=== PATIENT | male | born 1990 | race Caucasian/White ===

== ENCOUNTER 2019-01-01 14:47 | Emergency (ER) | payer SELFPAY ==
[2019-01-01] MEDS ORDERED: NORMAL SALINE 1000 ML 1,000 ML IV ONE (16:02)
--- NOTE | 2019-01-01 16:05 | ER Document Report ---
ED Medical Screen (RME) - General Chief Complaint: Abdominal Pain Stated Complaint: LOWER BACK PAIN Time Seen by Provider: 01/01/19 16:01 Primary Care Provider: JESSI ESPAÑA [Primary Care Provider] - Follow up as needed Notes: Patient is a otherwise healthy 28-year-old male presents to the emergency department for what he feels is blood in his urine. Patient states yesterday he noticed that his urine was a dark color. States initially thought he was just hydrated and drink more water. States then his urine was "normal." States today when he urinated he feels as though it was very dark, "almost like there was blood in it." Patient is also complaining of generalized suprapubic abdominal pain. Patient denies any kidney pain, back pain, trauma. GENERAL: Alert, interacts well. No acute distress. ABDOMEN: Soft, generalized suprapubic tenderness noted. Non-distended. Bowel sounds present in all 4 quadrants. EXTREMITIES: Moves all 4 extremities spontaneously. No edema, normal radial and dorsalis pedis pulses bilaterally. No cyanosis. BACK: no cervical, thoracic, lumbar midline tenderness. No saddle anesthesia, normal distal neurovascular exam. No CVA tenderness noted bilaterally This medical record was dictated with voice recognizing software. There may be grammatical, syntax errors that are unintended. I have greeted and performed a rapid initial assessment of this patient. A comprehensive ED assessment and evaluation of the patient, analysis of test results and completion of the medical decision making process will be conducted by additional ED providers. I have specifically instructed the patient or family members with the patient to immediately return to any nursing staff should anything change in the patient's condition or with their chief complaint. This medical record was dictated with voice recognizing software. There may be grammatical, syntax errors that are unintended. TRAVEL OUTSIDE OF THE [place] IN LAST 30 DAYS: No - Related Data Allergies/Adverse Reactions: No Known Allergies Allergy (Verified 01/01/19 14:47) Past Medical History - Social History Frequency of alcohol use: None Drug Abuse: None Renal/ Medical History: Denies: Hx Peritoneal Dialysis Past Surgical History: Reports: Hx Orthopedic Surgery Physical Exam - Vital signs Vitals: Temp Pulse Resp BP Pulse Ox 98.0 F 73 18 158/99 H 99 01/01/19 14:51 01/01/19 14:51 01/01/19 14:51 01/01/19 14:51 01/01/19 14:51 Course - Vital Signs Vital signs: Temp Pulse Resp BP Pulse Ox 98.0 F 73 18 158/99 H 99 01/01/19 14:51 01/01/19 14:51 01/01/19 14:51 01/01/19 14:51 01/01/19 14:51 Doctor's Discharge - Discharge Referrals: LOCALMD,NO [Primary Care Provider] - Follow up as needed
[2019-01-01 16:47] LABS: ABSOLUTE LYMPHOCYTES (AUTO) 1.3 10^3/uL (0.5-4.7); ABSOLUTE MONOCYTES (AUTO) 0.6 10^3/uL (0.1-1.4); ABSOLUTE NEUT (AUTO) 4.9 10^3/uL (1.7-8.2); BASOPHILS % (AUTO) 0.2 % (0-2); EOSINOPHILS % (AUTO) 0.4 % (0-6); HEMATOCRIT 47.7 % (37.9-51.0); HEMOGLOBIN 16.7 g/dL (13.5-17.0); LYMPHOCYTES % (AUTO) 18.9 % (13-45); MEAN CORPUSCULAR HEMOGLOBIN 29.8 pg (27.0-33.4); MEAN CORPUSCULAR VOLUME 85 fl (80-97); MONOCYTES % (AUTO) 8.3 % (3-13); PLATELET COUNT 179 10^3/uL (150-450); RED CELL DISTRIBUTION WIDTH 13.4 % (11.5-14.0); SEGMENTED NEUTROPHILS % (AUTO) 72.2 % (42-78); TOTAL CELLS COUNTED % (AUTO) 100 %; WHITE BLOOD COUNT 6.8 10^3/uL (4.0-10.5)
[2019-01-01 17:03] LABS: ALANINE AMINOTRANSFERASE 49 U/L (21-72); ALBUMIN 4.8 g/dL (3.5-5.0); ANION GAP 10 (5-19); ASPARTATE AMINO TRANSFERASE 23 U/L (17-59); BILIRUBIN,DIRECT 0.3 mg/dL (0.0-0.4); BILIRUBIN,TOTAL 0.9 mg/dL (0.2-1.3); BLOOD UREA NITROGEN 8 mg/dL (7-20); CALCIUM 10.2 mg/dL (8.4-10.2); CARBON DIOXIDE 28 mmol/L (22-30); CHLORIDE 103 mmol/L (98-107); CREATINE KINASE 49 U/L (55-170); GLUCOSE 89 mg/dL (75-110); NEONATAL BILIRUBIN RESULT 0.6 mg/dL (0.1-1.1); POTASSIUM 4.3 mmol/L (3.6-5.0); SODIUM 140.9 mmol/L (137-145); TOTAL PROTEIN 7.5 g/dL (6.3-8.2)
[2019-01-01 17:04] LABS: ALKALINE PHOSPHATASE 57 U/L (38-126)
[2019-01-01 17:36] LABS: APPEARANCE,URINE SLIGHTLY-CLOUDY; BILIRUBIN,URINE NEGATIVE (NEGATIVE); COLOR,URINE YELLOW; GLUCOSE, URINE 50 mg/dL (NEGATIVE); KETONES,URINE NEGATIVE (NEGATIVE); LEUKOCYTE ESTERASE,URINE NEGATIVE (NEGATIVE); NITRITE,URINE NEGATIVE (NEGATIVE); PROTEIN,URINE 30 mg/dL (NEGATIVE); URINE SPECIFIC GRAVITY 1.004; UROBILINOGEN,URINE NEGATIVE mg/dL (<2.0)
--- NOTE | 2019-01-01 19:03 | ER Document Report ---
ED GI/ - General Chief Complaint: Abdominal Pain Stated Complaint: LOWER BACK PAIN Time Seen by Provider: 01/01/19 16:01 Primary Care Provider: JESSI ESPAÑA [NO JARRETT MD] - Follow up as needed Notes: 28-year-old male presents to the emergency department for what he feels is blood in his urine. Patient states yesterday he noticed that his urine was a dark color. States initially thought he was just hydrated and drink more water. States then his urine was "normal." States today when he urinated he feels as though it was very dark, "almost like there was blood in it."Patient is also complaining of generalized suprapubic abdominal pain. Patient denies any kidney pain, back pain, trauma. TRAVEL OUTSIDE OF THE [place] IN LAST 30 DAYS: No - Related Data Allergies/Adverse Reactions: No Known Allergies Allergy (Verified 01/01/19 14:47) Past Medical History - Social History Smoking Status: Former Smoker Frequency of alcohol use: None Drug Abuse: None Family History: None Patient has suicidal ideation: No Patient has homicidal ideation: No Renal/ Medical History: Denies: Hx Peritoneal Dialysis Past Surgical History: Reports: Hx Orthopedic Surgery Review of Systems - Review of Systems Constitutional: denies: Chills, Fever Cardiovascular: denies: Chest pain Respiratory: denies: Short of breath Gastrointestinal: Abdominal pain. denies: Nausea, Vomiting Genitourinary: Hematuria Musculoskeletal: Back pain -: Yes All other systems reviewed and negative Physical Exam - Vital signs Vitals: Temp Pulse Resp BP Pulse Ox 98.0 F 73 18 158/99 H 99 01/01/19 14:51 01/01/19 14:51 01/01/19 14:51 01/01/19 14:51 01/01/19 14:51 - Notes Notes: GENERAL_APPEARANCE: well_nourished, alert, cooperative VITALS: reviewed, see vital signs table. HEAD: no_swelling\\tenderness on the head. EYES: PERRL, EOMI, conjunctiva_clear. NOSE: no_nasal_discharge. MOUTH: (-)decreased moisture. THROAT: no_tonsilar_inflammation, no_airway_obstruction. no_lymphadenopathy NECK: supple, no_neck_tenderness, (-)thyromegaly. BACK: no_back_tenderness. CHEST_WALL: no_chest_tenderness. LUNGS: no_wheezing, no_rales, no_rhonchi, (-)accessory muscle use, good air exchange bilateral. HEART: normal_rate, normal_rhythm, normal_S1, normal_S2, (-)S3, (-)S4, no_murmur, no_rub. ABDOMEN: normal_BS, soft, no_abd_tenderness, (-)guarding, (-)rebound, no_organomegaly, no_abd_masses. EXTREMITIES: good pulses in all_extremities, no_swelling\\tenderness in the extremities, no_edema. SKIN: warm, dry, good_color, no_rash. MENTAL_STATUS: speech_clear, oriented_X_3, normal_affect, responds_appropriately to questions. Course - Re-evaluation Re-evalutation: 01/01/19 19:00 The patient had back pain and hematuria. Triage placed basic orders but no scan. On my arrival to the room the patient is asymptomatic. He states he is feeling fine he is complaining of no back pain no abdominal pain. I examined him he has no costovertebral angle tenderness no suprapubic tenderness. His urine does have blood in it. No signs of infection the rest of the blood is fairly reassuring. She received IV fluids here he has no infection. I spoke with him that he may have passed a kidney stone. We spoke about a scan. However he states he feels fine now. He is never had kidney stones before patient has no pain. I explained to him he may have passed a stone however now that he is asymptomatic this may have just been academic. I encouraged him to follow-up with his doctor for a hematuria work-up. I will give him referral to urology. I did explain to him if he has any other pain whatsoever he should return to the ER immediately at this time is completely asymptomatic. States he feels fine he is in the room eating with no difficulty whatsoever he may have had a small stone that he may have passed. - Vital Signs Vital signs: Temp Pulse Resp BP Pulse Ox 98.0 F 73 18 158/99 H 99 01/01/19 14:51 01/01/19 14:51 01/01/19 14:51 01/01/19 14:51 01/01/19 14:51 - Laboratory Result Diagrams: 01/01/19 16:25 01/01/19 16:25 Laboratory results interpreted by me: 01/01/19 01/01/19 01/01/19 16:25 16:25 16:25 RBC 5.60 H Creatine Kinase 49 L Urine Protein 30 H Urine Glucose (UA) 50 H Urine Blood LARGE H Discharge - Discharge Clinical Impression: Hematuria Qualifiers: Hematuria type: unspecified type Qualified Code(s): R31.9 - Hematuria, unspecified Condition: Good Disposition: HOME, SELF-CARE Instructions: Hematuria ([facility]) Additional Instructions: You may have passed a kidney stone. As we have discussed since you have no pain in your back or abdomen now there is no sense in getting any further testing or imaging. If you develop any pain whatsoever then return to the ER immediately otherwise follow-up with Dr. Guerrier urology for further investigation of the blood in your urine. There is no signs of any infection on your laboratory work. Referrals: GUADALUPE GUERRIER MD [NO LOCAL MD] - Follow up as needed
[2019-01-01 19:10] VITALS: BP 137/87
== END 2019-01-01 19:13 | disposition home or self-care (01) ==
LOC: ER 14:47
DX: R31.9 Hematuria, unspecified (principal); R10.30 Lower abdominal pain, unspecified; M54.5 Low back pain; Z87.891 Personal history of nicotine dependence
CPT/HCPCS: 99284; 96360; 36415; 87086; 82550; 85025; 80053; 81001; J7030

== ENCOUNTER 2019-01-20 15:19 | Emergency (ER) | payer SELFPAY ==
[2019-01-20] MEDS ORDERED: NORMAL SALINE 1000 ML 1,000 ML IV ONE (16:33)
[2019-01-20] MEDS ORDERED: KETOROLAC TROMETHAMINE INJ/PF 30 MG/1 ML SDV IV ONE (16:33)
[2019-01-20 16:43] LABS: APPEARANCE,URINE CLEAR; BILIRUBIN,URINE NEGATIVE (NEGATIVE); COLOR,URINE YELLOW; GLUCOSE, URINE NEGATIVE (NEGATIVE); KETONES,URINE NEGATIVE (NEGATIVE); LEUKOCYTE ESTERASE,URINE NEGATIVE (NEGATIVE); NITRITE,URINE NEGATIVE (NEGATIVE); PROTEIN,URINE NEGATIVE (NEGATIVE); URINE SPECIFIC GRAVITY 1.006; UROBILINOGEN,URINE NEGATIVE mg/dL (<2.0)
[2019-01-20 17:23] LABS: ABSOLUTE LYMPHOCYTES (AUTO) 1.6 10^3/uL (0.5-4.7); ABSOLUTE MONOCYTES (AUTO) 0.6 10^3/uL (0.1-1.4); ABSOLUTE NEUT (AUTO) 5.9 10^3/uL (1.7-8.2); BASOPHILS % (AUTO) 0.1 % (0-2); EOSINOPHILS % (AUTO) 0.4 % (0-6); HEMATOCRIT 47.4 % (37.9-51.0); HEMOGLOBIN 16.3 g/dL (13.5-17.0); LYMPHOCYTES % (AUTO) 19.5 % (13-45); MEAN CORPUSCULAR HEMOGLOBIN 29.7 pg (27.0-33.4); MEAN CORPUSCULAR HGB CONC 34.3 g/dL (32.0-36.0); MEAN CORPUSCULAR VOLUME 86 fl (80-97); MONOCYTES % (AUTO) 7.8 % (3-13); PLATELET COUNT 193 10^3/uL (150-450); RED BLOOD COUNT 5.49 10^6/uL (4.35-5.55); RED CELL DISTRIBUTION WIDTH 13.2 % (11.5-14.0); SEGMENTED NEUTROPHILS % (AUTO) 72.2 % (42-78); TOTAL CELLS COUNTED % (AUTO) 100 %; WHITE BLOOD COUNT 8.1 10^3/uL (4.0-10.5)
[2019-01-20 17:24] LABS: URINE AMPHETAMINES SCREEN NEGATIVE; URINE BARBITURATES SCREEN NEGATIVE; URINE BENZODIAZEPINES SCREEN NEGATIVE; URINE COCAINE SCREEN NEGATIVE; URINE MARIJUANA (THC) SCREEN NEGATIVE; URINE METHADONE SCREEN NEGATIVE; URINE PHENCYCLIDINE SCREEN NEGATIVE
[2019-01-20 17:34] LABS: ALANINE AMINOTRANSFERASE 46 U/L (21-72); ALBUMIN 4.9 g/dL (3.5-5.0); ALKALINE PHOSPHATASE 71 U/L (38-126); ANION GAP 11 (5-19); ASPARTATE AMINO TRANSFERASE 28 U/L (17-59); BILIRUBIN,DIRECT 0.2 mg/dL (0.0-0.4); BILIRUBIN,TOTAL 0.9 mg/dL (0.2-1.3); BLOOD UREA NITROGEN 13 mg/dL (7-20); CALCIUM 9.6 mg/dL (8.4-10.2); CARBON DIOXIDE 26 mmol/L (22-30); CHLORIDE 102 mmol/L (98-107); GLUCOSE 81 mg/dL (75-110); POTASSIUM 4.2 mmol/L (3.6-5.0); SODIUM 138.5 mmol/L (137-145); TOTAL PROTEIN 7.4 g/dL (6.3-8.2)
--- NOTE | 2019-01-20 18:24 | RADIOLOGY REPORT (SQ) ---
EXAM DESCRIPTION: U/S SCROTUM W/O DOPPLER COMPLETED DATE/TIME: 01/20/2019 5:49 pm REASON FOR STUDY: pain with hematuria COMPARISON: None. TECHNIQUE: Static and realtime hernandez scale imaging of the scrotum and testes. Selected color Doppler and spectral images recorded to document blood flow. LIMITATIONS: None. FINDINGS: RIGHT: TESTICLE: Normal size. Normal echotexture. Normal blood flow. No mass. EPIDIDYMIS: Normal. HYDROCELE OR VARICOCELE: No. HERNIA OR EXTRA-TESTICULAR MASS: No. OTHER: No other significant finding. LEFT: TESTICLE: Normal size. Normal echotexture. Normal blood flow. No mass. EPIDIDYMIS: Normal. HYDROCELE OR VARICOCELE: No. HERNIA OR EXTRA-TESTICULAR MASS: No. OTHER: No other significant finding. IMPRESSION: NO EVIDENCE OF TESTICULAR MASS OR TORSION. TECHNICAL DOCUMENTATION: JOB ID: [id number] [place]-72 2010 [employer]- All Rights Reserved Reading location - IP/workstation name: [email or web address]
--- NOTE | 2019-01-20 18:26 | RADIOLOGY REPORT (SQ) ---
EXAM DESCRIPTION: U/S RETROPERITON (RENAL/AORTA) COMPLETED DATE/TIME: 01/20/2019 5:49 pm REASON FOR STUDY: pain with hematuria COMPARISON: None. TECHNIQUE: Dynamic and static grayscale images acquired of the kidneys and bladder and recorded on P ACS. Additional selected color Doppler and spectral images recorded. LIMITATIONS: None. FINDINGS: RIGHT KIDNEY: Normal size. Normal echogenicity. No solid or suspicious masses. Mildly dil ated right renal pelvis with possible 6 mm calcified stone in the distal right ureter. LEFT KIDNEY: Normal size. Normal echogenicity. No solid or suspicious masses. No hydronephrosis. No calcifications. BLADDER: No masses. OTHER FINDINGS: No other significant finding. IMPRESSION: Mildly dilated right renal pelvis with possible 6 mm calcified stone in the distal right ureter. TECHNICAL DOCUMENTATION: JOB ID: [id number] [place]-72 2010 [employer]- All Rights Reserved Reading location - IP/workstation name: [email or web address]
--- NOTE | 2019-01-20 19:15 | RADIOLOGY REPORT (SQ) ---
EXAM DESCRIPTION: CT ABD/PELVIS NO ORAL OR IV COMPLETED DATE/TIME: 01/20/2019 7:01 pm REASON FOR STUDY: kidney stone COMPARISON: None. TECHNIQUE: CT scan of the abdomen and pelvis performed without intravenous or oral contrast. Images reviewed with lung, soft tissue, and bone windows. Reconstructed coronal and sagittal MPR images revi ewed. All images stored on PACS. All CT scanners at this facility use dose modulation, iterative reconstruction, and/or weight based d osing when appropriate to reduce radiation dose to as low as reasonably achievable (ALARA). [facility]: Dose Right [facility]: CareDose [facility]: Dose Right [facility]: Teradose 4D [facility]: Smart Tailwind RADIATION DOSE: CT Rad equipment meets quality standard of care and radiation dose reduction techniq ues were employed. CTDIvol: 8.4 mGy. DLP: 477 mGy-cm.mGy. LIMITATIONS: None. FINDINGS: LOWER CHEST: No significant findings. No nodules or infiltrates. NON-CONTRASTED LIVER, SPLEEN, ADRENALS: Evaluation limited by lack of IV contrast. No identified sign ificant masses. PANCREAS: No masses. No peripancreatic inflammatory changes. GALLBLADDER: No calcified stones. No inflammatory changes to suggest cholecystitis. RIGHT KIDNEY AND URETER: No cysts identified. No solid masses. 3-4 mm calcified stone in the distal right ureter with mild-moderate hydronephrosis-hydroureter. LEFT KIDNEY AND URETER: No cysts identified. No solid masses. No calcified stones. No hydronephrosis or hydroureter. AORTA AND RETROPERITONEUM: No aneurysm. No retroperitoneal masses or adenopathy. BOWEL AND PERITONEAL CAVITY: No obvious masses or inflammatory changes. No free fluid. APPENDIX: Normal. PELVIS, BLADDER, AND ABDOMINAL WALL:No abnormal masses. No free fluid. Unremarkable bladder. BONES: No acute findings. OTHER: No other significant finding. IMPRESSION: 3-4 mm calcified stone in the distal right ureter with mild-moderate hydronephrosis-hydr oureter. TECHNICAL DOCUMENTATION: JOB ID: [id number] [place]-72 Quality ID # [id number]: Final reports with documentation of one or more dose reduction techniques (e.g., Au tomated exposure control, adjustment of the mA and/or kV according to patient size, use of iterative reconstruction technique) 2010 [employer]- All Rights Reserved Reading location - IP/workstation name: [email or web address]
--- NOTE | 2019-01-20 19:25 | ER Document Report ---
ED General - General Chief Complaint: Abdominal Pain Stated Complaint: BLOOD IN URINE Time Seen by Provider: 01/20/19 16:31 Primary Care Provider: HARJEET BUTCHER MD [[facility]] - Follow up as needed AYAKA SEBASTIAN MD [NO LOCAL MD] - Follow up as needed Notes: Patient is a 28-year-old male presents to the emergency department for generalized to lower abdominal pain as well as blood in his urine. Patient states he was seen at this facility recently for blood in his urine but did not have abdominal pain at that time. Patient states he has intermittent lower back pain as well. States his dysuria is also intermittent. According to nursing notes patient states he has a history of kidney stones. Patient is adamantly denying history of kidney stones to myself. Patient denies any vomiting or fever. Denies any trauma to his abdomen or lower back. TRAVEL OUTSIDE OF THE [place] IN LAST 30 DAYS: No - Related Data Allergies/Adverse Reactions: No Known Allergies Allergy (Verified 01/20/19 15:35) Past Medical History - General Information source: Patient - Social History Smoking Status: Former Smoker Chew tobacco use (# tins/day): No Frequency of alcohol use: None Drug Abuse: None Family History: None Patient has suicidal ideation: No Patient has homicidal ideation: No Renal/ Medical History: Denies: Hx Peritoneal Dialysis Past Surgical History: Reports: Hx Orthopedic Surgery Review of Systems - Review of Systems Constitutional: denies: Fever EENT: No symptoms reported Cardiovascular: No symptoms reported Respiratory: No symptoms reported Gastrointestinal: See HPI Genitourinary: See HPI Male Genitourinary: denies: Penile discharge Musculoskeletal: No symptoms reported Skin: No symptoms reported Hematologic/Lymphatic: No symptoms reported Neurological/Psychological: No symptoms reported Physical Exam - Vital signs Vitals: Temp Pulse Resp BP Pulse Ox 97.3 F 99 18 147/94 H 99 01/20/19 15:25 01/20/19 15:25 01/20/19 15:25 01/20/19 15:25 01/20/19 15:25 - Notes Notes: GENERAL: Alert, interacts well. No acute distress. HEAD: Normocephalic, atraumatic. EYES: Pupils equal, round, and reactive to light. Extraocular movements intact. ENT: Oral mucosa moist, tongue midline. NECK: Full range of motion. Supple. Trachea midline. LUNGS: Clear to auscultation bilaterally, no wheezes, rales, or rhonchi. No respiratory distress. HEART: Regular rate and rhythm. No murmur ABDOMEN: Soft, non-tender. Non-distended. Bowel sounds present in all 4 quadrants. No McBurney's point tenderness, no Kiser sign noted. Patient has been treated with Toradol upon my assessment. Denying any pain at this time. EXTREMITIES: Moves all 4 extremities spontaneously. No edema, normal radial and dorsalis pedis pulses bilaterally. No cyanosis. BACK: no cervical, thoracic, lumbar midline tenderness. No saddle anesthesia, normal distal neurovascular exam. No CVA tenderness noted bilaterally. NEUROLOGICAL: Alert and oriented x3. Normal speech. Cranial nerves II through XII grossly intact PSYCH: Normal affect, normal mood. SKIN: Warm, dry, normal turgor. No rashes or lesions noted. Course - Re-evaluation Re-evalutation: Patient's renal ultrasound shows a possible 6 mm stone. Patient scrotal ultrasound shows no signs of abnormalities. Patient continues to deny any history of kidney stones. I discussed with patient typically when they are newly diagnosed with kidney stones we do CT imaging to verify how big the stone is and where it is. I discussed ultrasound results with him at length at bedside. Patient voices that he would like CT imaging at this time. Patient states "I just want to make sure there is no others." Patient states his pain is well controlled with Toradol. CT imaging as follows: Renal Ultrasound 01/20/19 16:32 IMPRESSION: Mildly dilated right renal pelvis with possible 6 mm calcified stone in the distal right ureter. Scrotum Ultrasound 01/20/19 16:32 IMPRESSION: NO EVIDENCE OF TESTICULAR MASS OR TORSION. Abdomen/Pelvis CT 01/20/19 18:43 IMPRESSION: 3-4 mm calcified stone in the distal right ureter with mild- moderate hydronephrosis-hydroureter. Laboratory 01/20/19 01/20/19 01/20/19 15:43 15:43 16:59 WBC 8.1 RBC 5.49 Hgb 16.3 Hct 47.4 MCV 86 MCH 29.7 MCHC 34.3 RDW 13.2 Plt Count 193 Seg Neutrophils % 72.2 Lymphocytes % 19.5 Monocytes % 7.8 Eosinophils % 0.4 Basophils % 0.1 Absolute Neutrophils 5.9 Absolute Lymphocytes 1.6 Absolute Monocytes 0.6 Absolute Eosinophils 0.0 Absolute Basophils 0.0 Sodium Potassium Chloride Carbon Dioxide Anion Gap BUN Creatinine Est GFR ( Amer) Est GFR (Non-Af Amer) Glucose Calcium Total Bilirubin Direct Bilirubin Neonat Total Bilirubin Neonat Direct Bilirubin Neonat Indirect Bili AST ALT Alkaline Phosphatase Total Protein Albumin Urine Color YELLOW Urine Appearance CLEAR Urine pH 7.0 Ur Specific [place] 1.006 Urine Protein NEGATIVE Urine Glucose (UA) NEGATIVE Urine Ketones NEGATIVE Urine Blood LARGE H Urine Nitrite NEGATIVE Urine Bilirubin NEGATIVE Urine Urobilinogen NEGATIVE Ur Leukocyte Esterase NEGATIVE Urine WBC (Auto) 2 Urine RBC (Auto) 1 Squamous Epi Cells Auto <1 Urine Mucus (Auto) RARE Urine Ascorbic Acid NEGATIVE Urine Opiates Screen NEGATIVE Urine Methadone Screen NEGATIVE Ur Barbiturates Screen NEGATIVE Ur Phencyclidine Scrn NEGATIVE Ur Amphetamines Screen NEGATIVE U Benzodiazepines Scrn NEGATIVE Urine Cocaine Screen NEGATIVE U Marijuana (THC) Screen NEGATIVE 01/20/19 16:59 WBC RBC Hgb Hct MCV MCH MCHC RDW Plt Count Seg Neutrophils % Lymphocytes % Monocytes % Eosinophils % Basophils % Absolute Neutrophils Absolute Lymphocytes Absolute Monocytes Absolute Eosinophils Absolute Basophils Sodium 138.5 Potassium 4.2 Chloride 102 Carbon Dioxide 26 Anion Gap 11 BUN 13 Creatinine 0.88 Est GFR ( Amer) > 60 Est GFR (Non-Af Amer) > 60 Glucose 81 Calcium 9.6 Total Bilirubin 0.9 Direct Bilirubin 0.2 Neonat Total Bilirubin Not Reportable Neonat Direct Bilirubin Not Reportable Neonat Indirect Bili Not Reportable AST 28 ALT 46 Alkaline Phosphatase 71 Total Protein 7.4 Albumin 4.9 Urine Color Urine Appearance Urine pH Ur Specific [place] Urine Protein Urine Glucose (UA) Urine Ketones Urine Blood Urine Nitrite Urine Bilirubin Urine Urobilinogen Ur Leukocyte Esterase Urine WBC (Auto) Urine RBC (Auto) Squamous Epi Cells Auto Urine Mucus (Auto) Urine Ascorbic Acid Urine Opiates Screen Urine Methadone Screen Ur Barbiturates Screen Ur Phencyclidine Scrn Ur Amphetamines Screen U Benzodiazepines Scrn Urine Cocaine Screen U Marijuana (THC) Screen Discussed with patient use of pain medication and antinausea medication. Discussed staying well-hydrated and following up with primary care provider, also discussed potential need for follow-up with urology. Phone numbers will be provided in this packet. Patient continues to state pain is well controlled with Toradol, declining any further pain management in the emergency department. Patient stable for discharge At this time will discharge with return precautions and follow-up recommendations. Verbal discharge instructions given a the bedside and opportunity for questions given. Medication warnings reviewed. Patient is in agreement with this plan and has verbalized understanding of return precautions and the need for primary care follow-up in the next 24-72 hours. this medical record was dictated with voice recognizing software. There may be grammatical, syntax errors that are unintended. - Vital Signs Vital signs: Temp Pulse Resp BP Pulse Ox 97.3 F 99 18 147/94 H 99 01/20/19 15:25 01/20/19 15:25 01/20/19 15:25 01/20/19 15:25 01/20/19 15:25 - Laboratory Result Diagrams: 01/20/19 16:59 01/20/19 16:59 Laboratory results interpreted by me: 01/20/19 15:43 Urine Blood LARGE H Discharge - Discharge Clinical Impression: Kidney stone Condition: Stable Disposition: HOME, SELF-CARE Instructions: Kidney Stone ([facility]) Additional Instructions: As we discussed you have been seen and treated in the emergency department for a 3 mm kidney stone. Typically kidney stones of the size pass on their own. Please make sure you use pain and nausea medication as needed. Please follow-up with your primary care provider in the next 24 to 48 hours. Please also follow- up with urology for continued care. Please return to the emergency room should you have any other concerns to include unmanageable pain, unmanageable vomiting, fever.. Prescriptions: Hydrocodone/Acetaminophen [Pilger 5-325 mg Tablet] 1 tab PO Q4 PRN #20 tablet PRN Reason: Ondansetron [Zofran Odt 4 mg Tablet] 1 - 2 tab PO Q6 PRN #10 tab.rapdis PRN Reason: For Nausea/Vomiting Forms: Return to Work Referrals: AYAKA SEBASTIAN MD [NO LOCAL MD] - Follow up as needed HARJEET BUTCHER MD [[facility]] - Follow up as needed
[2019-01-20 19:51] VITALS: BP 136/86
--- NOTE | 2019-01-20 19:53 | ER Document Report ---
ED Medical Screen (RME) - General Chief Complaint: Abdominal Pain Stated Complaint: BLOOD IN URINE Time Seen by Provider: 01/20/19 16:31 Primary Care Provider: HARJEET BUTCHER MD [[employer]] - Follow up as needed AYAKA SEBASTIAN MD [[facility]] - Follow up as needed Mode of Arrival: Ambulatory Information source: Patient Notes: 28-year-old male was seen earlier today for complaint of pelvic pain testicle pain and blood in his urine. He states he had the blood off and on for the last 3 or 4 weeks and then it stopped 4 days ago. He states he has had the pain co ntinuing. He states they told him that he might have a stone and they discharged him home with no medicines for nausea vomiting or pain. He states he has not followed up since the last time he was seen. 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 He has no other medical history except for staph infection in his heel. Patient is alert oriented respirations regular and unlabored speaking in full sentences walks with even steady gait. We will get a ultrasound of his kidneys and his scrotal because of the area of his pain. Also treat him with some Toradol. I have greeted and performed a rapid initial assessment of this patient. A comprehensive ED assessment and evaluation of the patient, analysis of test results and completion of medical decision making process will be conducted by an additional ED providers. Dictation of this chart was performed using voice recognition software; therefore, there may be some unintended grammatical errors. TRAVEL OUTSIDE OF THE [place] IN LAST 30 DAYS: No - Related Data Allergies/Adverse Reactions: No Known Allergies Allergy (Verified 01/20/19 15:35) Past Medical History - Social History Chew tobacco use (# tins/day): No Frequency of alcohol use: None Drug Abuse: None Renal/ Medical History: Denies: Hx Peritoneal Dialysis Past Surgical History: Reports: Hx Orthopedic Surgery Physical Exam - Vital signs Vitals: Temp Pulse Resp BP Pulse Ox 97.3 F 99 18 147/94 H 99 01/20/19 15:25 01/20/19 15:25 01/20/19 15:25 01/20/19 15:25 01/20/19 15:25 Course - Vital Signs Vital signs: Temp Pulse Resp BP Pulse Ox 98.2 F 65 18 136/86 H 100 01/20/19 19:50 01/20/19 19:50 01/20/19 19:50 01/20/19 19:50 01/20/19 19:50 - Laboratory Result Diagrams: 01/20/19 16:59 01/20/19 16:59 Laboratory results interpreted by me: 01/20/19 15:43 Urine Blood LARGE H Doctor's Discharge - Discharge Clinical Impression: Kidney stone Condition: Stable Disposition: HOME, SELF-CARE Instructions: Kidney Stone ([facility]) Additional Instructions: As we discussed you have been seen and treated in the emergency department for a 3 mm kidney stone. Typically kidney stones of the size pass on their own. Please make sure you use pain and nausea medication as needed. Please follow-up with your primary care provider in the next 24 to 48 hours. Please also follow- up with urology for continued care. Please return to the emergency room should you have any other concerns to include unmanageable pain, unmanageable vomiting, fever.. Prescriptions: Hydrocodone/Acetaminophen [[place] 5-325 mg Tablet] 1 tab PO Q4 PRN #20 tablet PRN Reason: Ondansetron [Zofran Odt 4 mg Tablet] 1 - 2 tab PO Q6 PRN #10 tab.rapdis PRN Reason: For Nausea/Vomiting Forms: Return to Work Referrals: HARJEET BUTCHER MD [[employer]] - Follow up as needed AYAKA SEBASTIAN MD [ LOCAL MD] - Follow up as needed
== END 2019-01-20 19:49 | disposition home or self-care (01) ==
LOC: ER 15:19
DX: N20.0 Calculus of kidney (principal); R10.9 Unspecified abdominal pain; R31.9 Hematuria, unspecified; R10.2 Pelvic and perineal pain; N50.819 Testicular pain, unspecified; Z87.891 Personal history of nicotine dependence
CPT/HCPCS: 99284; 96361; 96374; 36415; 85025; 80053; 81001; 80307; 76770; 76870; 74176; J1885; J7030